=== PATIENT | male | born 1985 | race Caucasian/White ===

== ENCOUNTER 2019-10-16 11:49 | Emergency (ER) | payer SELFPAY ==
[2019-10-16] MEDS ORDERED: Bupivacaine PF 0.5% 30 ML VIAL ONE (12:08)
== END 2019-10-16 12:30 | disposition home or self-care (01) ==
LOC: MADERS 11:49
DX: K08.89 Other specified disorders of teeth and supporting structures (principal); L03.211 Cellulitis of face
CPT/HCPCS: 64400; S0020